=== PATIENT | female | born 1970 | race Two or more races ===

== ENCOUNTER 2020-08-05 13:49 | Emergency (ER) | payer SELFPAY ==
[~2020-08-05] VITALS: Ht 172.7 cm; Wt 130.0 kg
--- NOTE | 2020-08-05 15:54 | PHYS DOC ---
Past Medical History Past Medical History: Hypothyroid, Other Additional Past Medical Histor: RA Past Surgical History: No Surgical History Smoking Status: Never Smoker Alcohol Use: None General Adult EDM: Chief Complaint: ABDOMINAL PAIN HPI: HPI: Patient is a 50 year old female who presents with 2 weeks of increasing RUQ abdominal discomfort with some nausea. States she had one episode of vomiting earlier in this and one day with diarrhea, none since that time. States the pain continues all day long, but is worse when eating and seems to lighten up after eating. She had tried some Ranitidine for the discomfort but it has not helped at all. States no fevers, no headaches. Denies cough. Denies urinary changes. States the pain just seems to be a sharp pain. Does report she has had some fluctuating weight over the past year due to her hypothyroidism. She had recently seen her PCP and has another follow up with her Thyroid labs in 6 months. Review of Systems: Review of Systems: Constitutional: Denies fever or chills. [] Eyes: Denies change in visual acuity. [] HENT: Denies nasal congestion or sore throat. [] Respiratory: Denies cough or shortness of breath. [] Cardiovascular: Denies chest pain or edema. [] GI: Reports nausea, RUQ abdominal pain, one day of vomiting and one day of diarrhea. : Denies dysuria. [] Musculoskeletal: Denies back pain or joint pain. [] Integument: Denies rash. [] Neurologic: Denies headache, focal weakness or sensory changes. [] Endocrine: Denies polyuria or polydipsia. [] Lymphatic: Denies swollen glands. [] Psychiatric: Denies depression or anxiety. [] Heart Score: Risk Factors: Risk Factors: DM, Current or recent (<one month) smoker, HTN, HLP, family history of CAD, obesity. Risk Scores: Score 0 - 3: 2.5% MACE over next 6 weeks - Discharge Home Score 4 - 6: 20.3% MACE over next 6 weeks - Admit for Clinical Observation Score 7 - 10: 72.7% MACE over next 6 weeks - Early Invasive Strategies Physical Exam: PE: Constitutional: Well developed, well nourished, no acute distress, non-toxic appearance. Obese[] HENT: Normocephalic, atraumatic, bilateral external ears normal, oropharynx mois t, no oral exudates, nose normal. [] Eyes: PERRLA, EOMI, conjunctiva normal, no discharge. [] Neck: Normal range of motion, no tenderness, supple, no stridor. [] Cardiovascular:Heart rate regular rhythm, no murmur [] Lungs & Thorax: Bilateral breath sounds clear to auscultation [] Abdomen: Bowel sounds normal, soft, no masses, no pulsatile masses. Minimal tenderness to RLQ on palpation. Tenderness epigastric and Tenderness RUQ. Positive [place] sign. [] Skin: Warm, dry, no erythema, no rash. [] Back: No tenderness, no CVA tenderness. [] Extremities: No tenderness, no cyanosis, no clubbing, ROM intact, no edema. [] Neurologic: Alert and oriented X 3, normal motor function, normal sensory func tion, no focal deficits noted. [] Psychologic: Affect normal, judgement normal, mood normal. [] Current Patient Data: Labs: Laboratory Tests Test 08/05/20 14:48 POC Urine HCG, Qualitative Hcg negative (Negative) Vital Signs: Vital Signs Date Time Temp Pulse Resp B/P (MAP) Pulse Ox O2 Delivery O2 Flow Rate FiO2 08/05/20 15:17 98.3 65 16 128/60 (82) 98 Room Air 98.3 EKG: EKG: [] Radiology/Procedures: Radiology/Procedures: EXAM: CT Abdomen and Pelvis with IV contrast CLINICAL HISTORY: RUQ pain COMPARISON: none TECHNIQUE: Helical CT of the abdomen and pelvis was performed following the administration of intravenous contrast. Axial, coronal and sagittal reformatted images were generated. PQRS compliance statement - One or more of the following individualized dose reduction techniques were utilized for this study: 1. Automated exposure control 2. Adjustment of the mA and/or kV according to patient size 3. Use of iterative reconstruction technique FINDINGS: Lower chest: Calcified granuloma right lower lobe. Linear and bandlike opacities lower lobe likely scarring/atelectasis. Abdomen and Pelvis: Liver is enlarged. Hepatic hypoattenuation likely fatty liver. gallbladder, pancreas, spleen and adrenal glands are unremarkable. Left upper pole renal cyst is seen. No hydronephrosis or hydroureter. Bladder is unremarkable. Appendix is normal. Moderate to large volume colonic stool content. No small or large bowel dilatation. No bowel obstruction. Uterus and adnexa are unremarkable. No abdominal or pelvic ascites. No abdominal or pelvic lymphadenopathy. Aortic calcifications are seen. Bones: Degenerative changes of spine are seen. Trace anterolisthesis of L4 on L5. IMPRESSION: 1. Hepatomegaly and fatty liver. 2. Gallbladder is grossly normal. No biliary ductal dilatation. 3. Moderate to large volume colonic stool content. Electronically signed by: Eduardo Solis MD (08/05/2020 5:32 PM) [facility][] Course & Med Decision Making: Course & Med Decision Making Pertinent Labs and Imaging studies reviewed. (See chart for details) []Reviewed imaging and labs with patient and family, noting large amount of stool. Patient reports she has had some constipation for many years and will frequently go without a bowel movement for up to 2 weeks. States she had a small one yesterday but not much prior to that. Reports she has not tried to take any stool softeners or laxatives. Recommendation to use stool softeners, miralax, or mag citrate. Patient instructed in use and has intentions of follow up with her primary care provider. Patient and family with no further questions or concerns. Dragon Disclaimer: Elia Disclaimer: This electronic medical record was generated, in whole or in part, using a voice recognition dictation system. Departure Departure Impression: Primary Impression: Constipation Qualified Codes: K59.04 - Chronic idiopathic constipation Additional Impression: Abdominal pain Qualified Codes: R10.84 - Generalized abdominal pain Disposition: 01 DC HOME SELF CARE/HOMELESS Condition: GOOD Referrals: NO PCP (PCP) Patient Instructions: Constipation, Adult Additional Instructions: Adrián hablemos, deberia vargas algo Miralax cada kade. Tomarlo adrián los direcciones en la carton. Para hoy, para limpiar todo, puede vargas kwame Magnesium Citrate. Vargas la mitad de [place] y mesclar con mismo de algo adrián Sprite y tomarlo en la casa. No lo chayo en hugo o en amaris. Si no hay resultados en 3 horas, pue de vargas el otro mitad mesclado con mismo de Sprite otro vez. Sigue con hebert medico para evaluar hebert tiroide y ghulam si hebert estrenamiento jimenez mejorada As we discussed, you should take miralax every day. Take it according to the package directions. For today, to clean yourself out, you may take Mag Citrate. Take 1/2 the bottle and mix it with an equal amount of Sprite and drink it at ho me. Do not drink it in the store or in your car. If you do not have any results in 3 hours, you may take the other half of the bottle, mixed again with equal amount of sprite. Follow up with your primary care provider to continue evaluation of your thyroid and see if your constipation has improved. JUSTIN ASCENCIO APRN Aug 05, 2020 15:54
[2020-08-05 15:55] LABS: BILIRUBIN,URINE NEGATIVE (NEG); CLARITY,URINE TURBID; COLOR,URINE YELLOW; NITRITE,URINE NEGATIVE (NEG); PROTEIN,URINE NEGATIVE (NEG-TRACE)
[2020-08-05] MEDS ORDERED: MORPHINE SULFATE 2 MG/ML VIAL. IV PRN (16:00)
[2020-08-05] MEDS ORDERED: ONDANSETRON PF 4 MG/2 ML VIAL. IVP ONE (16:00)
[2020-08-05] MEDS ORDERED: IV NORMAL SALINE 1000ML BAG 1,000 ML IV ONE (16:00)
[2020-08-05 16:01] LABS: AMORPHOUS SEDIMENT,UR PRESENT /HPF; BACTERIA,URINE 0 /HPF (0-FEW); RBC,URINE 0 /HPF (0-2); WBC,URINE 0 /HPF (0-4)
[2020-08-05 16:11] LABS: BASO % 1 % (0-3); EOS # 0.1 x10^3/uL (0.0-0.7); EOS % 2 % (0-3); HEMATOCRIT 37.3 % (36.0-47.0); HEMOGLOBIN 12.7 g/dL (12.0-15.5); LYMPH # 1.6 x10^3/uL (1.0-4.8); LYMPH % 39 % (24-48); MEAN CORPUSCULAR HEMOGLOBIN 30 pg (25-35); MEAN CORPUSCULAR HGB CONC 34 g/dL (31-37); MEAN CORPUSCULAR VOLUME 87 fL (79-100); MONO # 0.3 x10^3/uL (0.0-1.1); MONO % 7 % (0-9); NEUT # 2.1 x10^3/uL (1.8-7.7); NEUT % 51 % (31-73); PLATELET COUNT 265 x10^3/uL (140-400); RED BLOOD COUNT 4.31 x10^6/uL (3.50-5.40); RED CELL DISTRIBUTION WIDTH 15.2 % (11.5-14.5)
[2020-08-05 16:17] VITALS: BP 118/74
[2020-08-05 16:20] LABS: CALCIUM 9.2 mg/dL (8.5-10.1); CREATININE 0.5 mg/dL (0.6-1.0); GFR 131.7; POTASSIUM 4.1 mmol/L (3.5-5.1)
[2020-08-05 16:25] LABS: ALBUMIN 3.7 g/dL (3.4-5.0); ALBUMIN/GLOBULIN RATIO 1.2 (1.0-1.7); MAGNESIUM 2.1 mg/dL (1.8-2.4); TOTAL BILIRUBIN 0.2 mg/dL (0.2-1.0); TOTAL PROTEIN 6.7 g/dL (6.4-8.2)
[2020-08-05] MEDS ORDERED: IOHEXOL 300 MG/ML 100ML VIAL. IV ONE (16:30)
[2020-08-05] MEDS ORDERED: CONTRAST GIVEN. MC PRN (16:30)
--- NOTE | 2020-08-05 17:35 | RAD ---
EXAM: CT Abdomen and Pelvis with IV contrast CLINICAL HISTORY: RUQ pain COMPARISON: none TECHNIQUE: Helical CT of the abdomen and pelvis was performed following the administration of intravenous contrast. Axial, coronal and sagittal reformatted images were generated. PQRS compliance statement - One or more of the following individualized dose reduction techniques were utilized for this study: 1. Automated exposure control 2. Adjustment of the mA and/or kV according to patient size 3. Use of iterative reconstruction technique FINDINGS: Lower chest: Calcified granuloma right lower lobe. Linear and bandlike opacities lower lobe likely scarring/atelectasis. Abdomen and Pelvis: Liver is enlarged. Hepatic hypoattenuation likely fatty liver. gallbladder, pancreas, spleen and adrenal glands are unremarkable. Left upper pole renal cyst is seen. No hydronephrosis or hydroureter. Bladder is unremarkable. Appendix is normal. Moderate to large volume colonic stool content. No small or large bowel dilatation. No bowel obstruction. Uterus and adnexa are unremarkable. No abdominal or pelvic ascites. No abdominal or pelvic lymphadenopathy. Aortic calcifications are seen. Bones: Degenerative changes of spine are seen. Trace anterolisthesis of L4 on L5. IMPRESSION: 1. Hepatomegaly and fatty liver. 2. Gallbladder is grossly normal. No biliary ductal dilatation. 3. Moderate to large volume colonic stool content. Electronically signed by: Eduardo Solis MD (08/05/2020 5:32 PM) [facility]
== END 2020-08-05 18:05 | disposition home or self-care (01) ==
LOC: ER 13:49
DX: K59.00 Constipation, unspecified (principal); R10.84 Generalized abdominal pain; K76.0 Fatty (change of) liver, not elsewhere classified; E03.9 Hypothyroidism, unspecified
CPT/HCPCS: 36415; 74177; 80053; 81001; 81025; 83690; 83735; 84484; 85025; 96361; 96374; 96375; 99285; J2270; J2405; J7030; Q9967